=== PATIENT | male | born 1970 | race Caucasian/White ===

== ENCOUNTER 2017-08-05 13:49 | Outpatient (CLI) | payer OTHER | END 2017-08-05 15:06 | disposition home or self-care (01) | LOC: DCC 13:49 | DX: I12.0 Hypertensive chronic kidney disease with stage 5 chronic kidney disease or end stage renal disease (principal); N18.6 End stage renal disease; Z99.2 Dependence on renal dialysis; E11.8 Type 2 diabetes mellitus with unspecified complications; E78.5 Hyperlipidemia, unspecified; Z87.891 Personal history of nicotine dependence; Z83.3 Family history of diabetes mellitus; Z79.4 Long term (current) use of insulin | CPT/HCPCS: G0463 ==

== ENCOUNTER 2017-08-19 13:52 | Outpatient (CLI) | payer OTHER | END 2017-08-19 16:05 | disposition home or self-care (01) | LOC: DCC 13:52 | DX: E11.8 Type 2 diabetes mellitus with unspecified complications (principal); I12.0 Hypertensive chronic kidney disease with stage 5 chronic kidney disease or end stage renal disease; N18.6 End stage renal disease; Z99.2 Dependence on renal dialysis; Z79.82 Long term (current) use of aspirin | CPT/HCPCS: G0463 ==